=== PATIENT | female | born 1970 | race Caucasian/White ===

== ENCOUNTER 2019-09-17 14:47 | Emergency (ER) | payer OTHER ==
[~2019-09-17] VITALS: Ht 162.6 cm; Wt 85.3 kg
[2019-09-17 14:48] VITALS: BP 143/98
[2019-09-17] MEDS ORDERED: LORazepam 2 MG/ML, 1ML ONE (15:26)
[2019-09-17] MEDS ORDERED: MORPHINE SULFATE 4 MG/ML, 1ML IVPush PRN (15:30)
--- NOTE | 2019-09-17 15:34 | NUR ---
PT TO ROOM 31 PER PEDIS. PT VERY UPSET, CRYING UPON ARRIVAL. PT WAS SEEN BY A DOCTOR EARLIER TODAY WHO SAID SHE MOST LIKELY HAS GALL STONES, AND WANTED HER TO COME TO THE ED. PT BEGAN TO GET VERY WORRIED WHEN THEY SENT HER TO THE RESP SIDE. PT HAS NO COUGH, FEVER, SORE THROAT, OR COVID SYMPTOMS. PT IS AFRAID SHE IS NOW GOING TO GET COVID, AND SHE DOES NOT WANT TO . RN ABLE TO CALM PATIENT BRIEFLY, BUT ANXIETY STARTS UP AGAIN WHEN DOCTOR COMES IN TO ROOM. MUCH COAXING AND EXPLAINING TO HELP PATIENT UNDERSTAND WE ARE GOING TO TAKE CARE OF HER. ORIGINAL ORDER WAS FOR MORPHINE, BUT CHANGES ORDERS TO ATIVAN 1MG. RN ADMINISTERS ATIVAN WITHOUT DIFF. ATTEMPTS TO FIND UNSUCCESSFUL, AND CALLING HIS NUMBER LED TO JUST AN ANSWERING MACHINE. PT UPSET SHE CAN NOT FIND HIM OR CALL HER SON BECAUSE SHE DOES NOT KNOW HIS NUMBER AND SHE CAN'T FIND HER CELL PHONE. US AT BEDSIDE TO PERFORM TESTING.
[2019-09-17 15:38] LABS: BASOPHILS # (AUTO) 0.17 x10^3/uL (0-0.1); BASOPHILS % (AUTO) 1 % (0-1); EOSINOPHILS % (AUTO) 2 % (1-7); LYMPHOCYTES # (AUTO) 3.33 x10^3/uL (1-3.4); LYMPHOCYTES % (AUTO) 27 % (22-44); MD NO; MEAN CORPUSCULAR HEMOGLOBIN 32.3 pg (27.0-34.8); MEAN CORPUSCULAR HGB CONC 33.7 g/dL (32.4-35.8); MEAN CORPUSCULAR VOLUME 95.6 fL (80-100); MEAN PLATELET VOLUME 9.1 fL (7.4-10.4); MONOCYTES # (AUTO) 0.57 x10^3/uL (0.2-0.8); MONOCYTES % (AUTO) 5 % (2-9); NEUTROPHILS # (AUTO) 7.89 x10^3/uL (1.8-6.8); NEUTROPHILS % (AUTO) 65 % (42-75); PLATELET COUNT 267 x10^3/uL (130-400); RED BLOOD COUNT 4.29 x10^6/uL (3.82-5.3); RED CELL DISTRIBUTION WIDTH 13.2 % (9.6-15.2)
[2019-09-17 15:46] LABS: ALANINE AMINOTRANSFERASE 24 U/L (12-78); ALBUMIN 3.6 g/dL (3.4-5.0); ANION GAP 9 mmol/L (5-15); CALCIUM 8.3 mg/dL (8.5-10.1); CHLORIDE 110 mmol/L (98-107); CREATININE 0.98 mg/dL (0.55-1.02)
[2019-09-17 15:51] LABS: ALKALINE PHOSPHATASE 85 U/L (45-117); BILIRUBIN,TOTAL 0.2 mg/dL (0.2-1.0); TOTAL PROTEIN 7.3 g/dL (6.4-8.2); TROPONIN I < 0.015 ng/mL (0.000-0.045)
[2019-09-17] MEDS ORDERED: LORazepam 2 MG/ML, 1ML IVPush ONE ×2 (16:00→17:00)
[2019-09-17] MEDS ORDERED: ONDANSETRON 2MG/ML, 2ML IVPush ONE (16:00)
[2019-09-17] MEDS ORDERED: SODIUM CHLORIDE 0.9% 1,000ML IVBOLUS ONE (16:00)
--- NOTE | 2019-09-17 16:07 | NUR ---
BREAK RN: PT OOB AND AMBULATED TO BATHROOM, CLEAN CATCH URINE COLLECTED AND PT RTD TO ROOM W/O INCIDENT. PT IS TEARFUL, VERBALIZING CONCERNS "WHAT IS WRONG WITH ME" PT INFORMED THAT US IS COMPLETED AND WILL BE REVIEWED BY THE RADIOLOGIST. URINE HAS BEEN SENT TO LAB, ALL RESULTS SHOULD BE POSTED WITHIN THE NEXT HOUR. CALL LIGHT W/I REACH, BLANKET AND PILLOW PROVIDED.
[2019-09-17 16:20] LABS: MICROSCOPIC NOT IND
[2019-09-17 16:24] LABS: CULTURE INDICATED? NO
[2019-09-17] MEDS ORDERED: SODIUM CHLORIDE FLUSH 10ML SYR IVF ONE (16:30)
--- NOTE | 2019-09-17 16:30 | NUR ---
RN RETURNED FROM LUNCH, PT IS FULLY DRESSED IN BED AND IV HAS BEEN REMOVED. ORDERS FOR CT OF ABDOMEN.
--- NOTE | 2019-09-17 16:43 | NUR ---
Alvaro RN: Pt was found OOB, fully dressed, stating that she wants to "come back for the cat scan" Pt gotten back into bed, into gown, pt agreeing to stay for CT. Pt very upset that her "just dumped me here", attempted to contact pt's at , no answer, message left requesting that he return to ED.
--- NOTE | 2019-09-17 16:58 | NUR ---
PT RETURNED, AND RN OUT TO SPEAK WITH HIM AND BRING HIM BACK TO SEE . BACK IN PATIENT GOWN AND HEADED TO CT. THEN INFORMS RN AND CUSTOMS COMPLIANCE SPECIALIST THAT PATIENT DRINKS HEAVILY ALL THE TIME, BUT THE ABDOMINAL PAIN IS REAL. MEDICATION CHANGE PATIENT IV IS OUT, DC THE ATIVAN, AND WILL GIVE THE TORADOL IM.
[2019-09-17] MEDS ORDERED: KETOROLAC 30 MG/1 ML IVPush ONE (17:00)
--- NOTE | 2019-09-17 17:01 | NUR ---
UNABLE TO GET A FULL BLOOD PRESSURE PATIENT CAN NOT SIT STILL LONG ENOUGH FOR CUFF TO GET A READING.
--- NOTE | 2019-09-17 17:41 | NUR ---
IN TO SPEAK TO PATIENT REGARDING HER TEST RESULTS.
--- NOTE | 2019-09-17 17:46 | NUR ---
PATIENT AGAIN HAS COMPLETELY DRESSED HERSELF TO LEAVE. AFTER MD SPOKE WITH HER, PATIENT WALKS OUT OF ROOM CRYING ASKING TO SEE HER . PT REDIRECTED BACK INTO ROOM. AT BEDSIDE. WILL CONTINUE TO MONITOR.
--- NOTE | 2019-09-17 18:16 | NUR ---
DISCHARGE INSTRUSTIONS GIVEN TO PATIENT AND AFTER MD IN EXPLAINING WHERE SHE NEEDS TO GO TO FOLLOW UP. ONE PRESCRIPTION GIVEN FOR PAIN MEDS AND MEDICATION EXPLAINED TO PATIENT AND . PT REFUSED TO HAVE VITALS TAKEN, AND AMBULATED OUT OF ED PER PEDIS WITH HER .
== END 2019-09-17 18:19 | disposition home or self-care (01) ==
LOC: ED 15:54
DX: S39.012A Strain of muscle, fascia and tendon of lower back, initial encounter (principal); N13.30 Unspecified hydronephrosis; R06.4 Hyperventilation; F41.9 Anxiety disorder, unspecified; X58.XXXA Exposure to other specified factors, initial encounter; Y93.89 Activity, other specified; Y92.89 Other specified places as the place of occurrence of the external cause; Y99.8 Other external cause status
CPT/HCPCS: 36415; 71045; 74176; 76700; 80053; 81003; 83690; 84484; 85025; 96374; 99285; J2060; J7030

== ENCOUNTER 2019-09-17 19:09 | Emergency (ER) | payer OTHER ==
[~2019-09-17] VITALS: Ht 162.6 cm; Wt 83.5 kg
[2019-09-17 19:20] VITALS: BP 141/83
[2019-09-17] MEDS ORDERED: HYDROcodone/APAP 5/325 TABLET ONE (20:03)
[2019-09-17] MEDS ORDERED: HYDROcodone/APAP 5/325 TABLET PO ONE (20:30)
== END 2019-09-17 20:26 | disposition home or self-care (01) ==
LOC: ED 20:22
DX: S92.354A Nondisplaced fracture of fifth metatarsal bone, right foot, initial encounter for closed fracture (principal); X50.1XXA Overexertion from prolonged static or awkward postures, initial encounter; Y93.89 Activity, other specified; Y92.481 Parking lot as the place of occurrence of the external cause; Y99.8 Other external cause status
CPT/HCPCS: 29515; 99283

== ENCOUNTER 2019-09-28 15:53 | Inpatient (IN) | payer OTHER ==
[~2019-09-28] VITALS: Ht 162.6 cm; Wt 89.9 kg
--- NOTE | 2019-09-28 15:57 | NUR ---
PT CALLED TO TRIAGE X1, PT IN RR.
[2019-09-28] MEDS ORDERED: MORPHINE SULFATE 4 MG/ML, 1ML ONE (16:26)
[2019-09-28] MEDS ORDERED: ONDANSETRON 2MG/ML, 2ML ONE (16:26)
[2019-09-28] MEDS ORDERED: ACETAMINOPHEN 500 MG TABLET ONE (16:27)
[2019-09-28] MEDS ORDERED: SODIUM CHLORIDE 0.9% 1,000ML IVBOLUS ONE (16:30)
[2019-09-28] MEDS ORDERED: MORPHINE SULFATE 4 MG/ML, 1ML IVPush PRN (16:30)
[2019-09-28] MEDS ORDERED: ACETAMINOPHEN 500 MG TABLET PO ONE (16:30)
[2019-09-28] MEDS ORDERED: SODIUM CHLORIDE FLUSH 10ML SYR IVF ONE (16:30)
[2019-09-28] MEDS ORDERED: ONDANSETRON 2MG/ML, 2ML IVPush ONE (16:30)
--- NOTE | 2019-09-28 16:50 | NUR ---
PT RESTING IN [facility], MEDICATED PER JUL, NAD, WHEELED TO RESTROOM VIA WHEELCHAIR, CALL LIGHT ON LAP, NAD, RESP WNL. WCTM.
[2019-09-28 16:55] LABS: BASOPHILS # (AUTO) 0.01 x10^3/uL (0-0.1); BASOPHILS % (AUTO) 0 % (0-1); EOSINOPHILS # (AUTO) 0.03 x10^3/uL (0-0.4); EOSINOPHILS % (AUTO) 0 % (1-7); LYMPHOCYTES # (AUTO) 0.67 x10^3/uL (1-3.4); LYMPHOCYTES % (AUTO) 5 % (22-44); MD NO; MEAN CORPUSCULAR HEMOGLOBIN 31.9 pg (27.0-34.8); MEAN CORPUSCULAR HGB CONC 33.7 g/dL (32.4-35.8); MEAN CORPUSCULAR VOLUME 94.8 fL (80-100); MONOCYTES % (AUTO) 1 % (2-9); NEUTROPHILS % (AUTO) 94 % (42-75); PLATELET COUNT 172 x10^3/uL (130-400); RED BLOOD COUNT 4.46 x10^6/uL (3.82-5.3); RED CELL DISTRIBUTION WIDTH 13.2 % (9.6-15.2)
[2019-09-28 17:09] LABS: ALANINE AMINOTRANSFERASE 20 U/L (12-78); ALBUMIN 3.8 g/dL (3.4-5.0); ANION GAP 5 mmol/L (5-15); CALCIUM 9.1 mg/dL (8.5-10.1); CHLORIDE 102 mmol/L (98-107); CREATININE 1.29 mg/dL (0.55-1.02)
[2019-09-28 17:11] LABS: ALKALINE PHOSPHATASE 78 U/L (45-117); BILIRUBIN,TOTAL 0.7 mg/dL (0.2-1.0); TOTAL PROTEIN 7.9 g/dL (6.4-8.2)
[2019-09-28] MEDS ORDERED: CEFTRIAXONE PMX 1GM/50ML 50 ML ONE (17:19)
[2019-09-28 17:28] LABS: MICROSCOPIC AUTO
[2019-09-28] MEDS ORDERED: CEFTRIAXONE PMX 1GM/50ML 50 ML IV ONE (17:30)
--- NOTE | 2019-09-28 17:45 | NUR ---
PT TO CT VIA KATIA SULLIVAN, RESP WNL, P/W/D, WCTM.
[2019-09-28] MEDS ORDERED: OMNIPAQUE 350 MG/ML, 150 ML BOTTLE ONE (18:00)
[2019-09-28] MEDS ORDERED: OXYCODONE PO (18:08)
[2019-09-28] MEDS ORDERED: IBUPROFEN 600 MG TABLET ONE (18:18)
[2019-09-28] MEDS ORDERED: IBUPROFEN 600 MG TABLET PO ONE (18:30)
--- NOTE | 2019-09-28 18:34 | NUR ---
PT RESTING ON GURNEY IN GOWN, NAD, RESP WNL, P/W/D, CALL LIGHT ON LAP. VSS, WCTM. WAITING FOR TEST RESULTS. PT HELPED TO BEDSIDE COMMODE TO E. WAITING FOR ADMIT BED.
[2019-09-28] MEDS ORDERED: ATOR10TA9 PO (18:48)
[2019-09-28] MEDS ORDERED: DIPH25CA61 PO (18:48)
[2019-09-28] MEDS ORDERED: ALPRAZOLAM PEG (18:48)
[2019-09-28] MEDS ORDERED: NITR100C PO (18:48)
[2019-09-28] MEDS ORDERED: HYDR-3237 PO (18:48)
[2019-09-28] MEDS ORDERED: BISACODYL 10 MG SUPP PR PRN (19:00)
[2019-09-28] MEDS ORDERED: HYDROmorphone 2 MG/ML, 1ML IVPush PRN (19:00)
[2019-09-28] MEDS ORDERED: POLYETHYLENE GLYCOL 17 GM PACKET PO PRN (19:00)
[2019-09-28] MEDS ORDERED: hydrALAzine 20 MG/ML, 1ML IVPush PRN (19:00)
--- NOTE | 2019-09-28 19:06 | NUR ---
BEDSIDE REPORT TO ANGELLA ARMIJO. PT CARE TRANSFERRED AT THIS TIME.
--- NOTE | 2019-09-28 19:07 | NUR ---
first pt contact, assisted to bedside commode, await room assignment.
[2019-09-28] MEDS ORDERED: DIPHENHYDRAMINE 25 MG CAPSULE PO PRN (19:30)
[2019-09-28] MEDS ORDERED: HYDROcodone/APAP 5/325 TABLET PO PRN (19:30)
[2019-09-28] MEDS: HYDROCODONE MC SCH ×2 (19:30→23:38)
[2019-09-28] MEDS: ACETAMINOPHEN MC SCH ×2 (19:30→23:38)
[2019-09-28] MEDS: MEROPENEM 1 GM in SODIUM CHLORIDE 0.9% 100 ML IV SCH (21:05)
[2019-09-28] MEDS: SODIUM CHLORIDE 0.9% 1,000 ML IV SCH (21:16)
[2019-09-28] MEDS: HEPARIN 5,000 UNITS/ML, 1ML SQ SCH (21:17)
[2019-09-28] MEDS: ATORVASTATIN 10 MG TABLET PO SCH (21:17)
[2019-09-28] MEDS: ONDANSETRON 2MG/ML, 2ML IVPush PRN (23:20)
[2019-09-29 00:59] VITALS: BP 92/59
[2019-09-29] MEDS: HEPARIN 5,000 UNITS/ML, 1ML SQ SCH ×3 (04:00→18:16)
[2019-09-29] MEDS: MEROPENEM 1 GM in SODIUM CHLORIDE 0.9% 100 ML IV SCH ×3 (04:39→20:56)
[2019-09-29] MEDS: ONDANSETRON 2MG/ML, 2ML IVPush PRN (05:19)
[2019-09-29] MEDS: HYDROcodone/APAP 5/325 TABLET PO PRN ×3 (05:20→21:12)
[2019-09-29 05:50] LABS: ALBUMIN 2.9 g/dL (3.4-5.0); ANION GAP 5 mmol/L (5-15); CALCIUM 8.4 mg/dL (8.5-10.1); CHLORIDE 106 mmol/L (98-107)
[2019-09-29 05:54] LABS: ALANINE AMINOTRANSFERASE 17 U/L (12-78); ALKALINE PHOSPHATASE 77 U/L (45-117); BILIRUBIN,TOTAL 0.3 mg/dL (0.2-1.0); CHOL/HDL RATIO 2.8; CHOLESTEROL, TOTAL 152 mg/dL (140-239); CREATININE 1.18 mg/dL (0.55-1.02); HDL CHOL % 36 % (28-40); HDL CHOLESTEROL (DIRECT) 54 mg/dL (40-60); LDL CHOLESTEROL,CALCULATED 38 mg/dL (54-169); LDL/HDL RATIO 0.7 (0.5-3.0); TOTAL PROTEIN 6.4 g/dL (6.4-8.2); TRIGLYCERIDES 302 mg/dL (50-200); VLDL CHOLESTEROL 60 mg/dL (0-25)
[2019-09-29 06:02] LABS: MEAN CORPUSCULAR HGB CONC 33.4 g/dL (32.4-35.8); MEAN CORPUSCULAR VOLUME 95.8 fL (80-100); MEAN PLATELET VOLUME 9.3 fL (7.4-10.4); PLATELET COUNT 201 x10^3/uL (130-400); RED BLOOD COUNT 3.91 x10^6/uL (3.82-5.3); RED CELL DISTRIBUTION WIDTH 13.5 % (9.6-15.2)
[2019-09-29 06:31] LABS: BASOPHILS % (AUTO) 0 % (0-1); EOSINOPHILS # (AUTO) 0.02 x10^3/uL (0-0.4); EOSINOPHILS % (AUTO) 0 % (1-7); LYMPHOCYTES # (AUTO) 1.14 x10^3/uL (1-3.4); LYMPHOCYTES % (AUTO) 6 % (22-44); MD SCAN; MONOCYTES % (AUTO) 3 % (2-9); NEUTROPHILS # (AUTO) 16.59 x10^3/uL (1.8-6.8); NEUTROPHILS % (AUTO) 90 % (42-75)
[2019-09-29] MEDS: HYDROCODONE MC SCH ×3 (07:50→19:21)
[2019-09-29] MEDS: ACETAMINOPHEN MC SCH ×3 (07:50→19:21)
[2019-09-29 07:52] VITALS: BP 117/78
[2019-09-29] MEDS ORDERED: KETOROLAC 30 MG/1 ML IVPush PRN (08:30)
[2019-09-29] MEDS: SENNA/DOCUSATE TABLET PO SCH (08:50)
[2019-09-29] MEDS: SODIUM CHLORIDE 0.9% 1,000 ML IV SCH ×2 (08:51→18:17)
[2019-09-29 13:10] VITALS: BP 106/71
[2019-09-29] MEDS: ACETAMINOPHEN 325 MG TABLET PO PRN (18:16)
[2019-09-29 18:27] VITALS: BP 121/82
[2019-09-29] MEDS: ATORVASTATIN 10 MG TABLET PO SCH (20:56)
[2019-09-30 00:15] VITALS: BP 138/91
[2019-09-30] MEDS: ACETAMINOPHEN 325 MG TABLET PO PRN ×2 (04:47→21:04)
[2019-09-30] MEDS: HYDROcodone/APAP 5/325 TABLET PO PRN ×2 (04:47→19:40)
[2019-09-30] MEDS: MEROPENEM 1 GM in SODIUM CHLORIDE 0.9% 100 ML IV SCH ×3 (04:48→20:53)
[2019-09-30] MEDS: HEPARIN 5,000 UNITS/ML, 1ML SQ SCH ×3 (04:48→20:53)
[2019-09-30] MEDS: SODIUM CHLORIDE 0.9% 1,000 ML IV SCH ×2 (04:49→16:10)
[2019-09-30 06:21] LABS: BASOPHILS # (AUTO) 0.03 x10^3/uL (0-0.1); BASOPHILS % (AUTO) 0 % (0-1); EOSINOPHILS # (AUTO) 0.07 x10^3/uL (0-0.4); EOSINOPHILS % (AUTO) 1 % (1-7); LYMPHOCYTES # (AUTO) 0.92 x10^3/uL (1-3.4); LYMPHOCYTES % (AUTO) 10 % (22-44); MD SCAN; MEAN CORPUSCULAR HEMOGLOBIN 31.4 pg (27.0-34.8); MEAN CORPUSCULAR HGB CONC 32.7 g/dL (32.4-35.8); MEAN CORPUSCULAR VOLUME 95.8 fL (80-100); MEAN PLATELET VOLUME 9.5 fL (7.4-10.4); MONOCYTES # (AUTO) 0.68 x10^3/uL (0.2-0.8); MONOCYTES % (AUTO) 7 % (2-9); NEUTROPHILS # (AUTO) 7.79 x10^3/uL (1.8-6.8); NEUTROPHILS % (AUTO) 82 % (42-75); PLATELET COUNT 163 x10^3/uL (130-400); RED BLOOD COUNT 3.64 x10^6/uL (3.82-5.3); RED CELL DISTRIBUTION WIDTH 13.5 % (9.6-15.2)
[2019-09-30 06:28] LABS: ANION GAP 6 mmol/L (5-15); CALCIUM 8.7 mg/dL (8.5-10.1); CHLORIDE 110 mmol/L (98-107); CREATININE 1.06 mg/dL (0.55-1.02)
[2019-09-30 07:14] VITALS: BP 126/81
[2019-09-30] MEDS: HYDROCODONE MC SCH (07:15)
[2019-09-30] MEDS: ACETAMINOPHEN MC SCH (07:15)
[2019-09-30] MEDS: SENNA/DOCUSATE TABLET PO SCH (08:01)
[2019-09-30 16:15] VITALS: BP 145/90
[2019-09-30 20:50] VITALS: BP 138/88
[2019-09-30] MEDS: ATORVASTATIN 10 MG TABLET PO SCH (20:54)
[2019-10-01 00:25] VITALS: BP 130/86
[2019-10-01] MEDS: MEROPENEM 1 GM in SODIUM CHLORIDE 0.9% 100 ML IV SCH (04:59)
[2019-10-01] MEDS: HEPARIN 5,000 UNITS/ML, 1ML SQ SCH ×3 (04:59→22:19)
[2019-10-01] MEDS: SODIUM CHLORIDE 0.9% 1,000 ML IV SCH (04:59)
[2019-10-01] MEDS: HYDROcodone/APAP 5/325 TABLET PO PRN ×4 (05:05→22:19)
[2019-10-01 07:46] VITALS: BP 153/97
[2019-10-01] MEDS: SENNA/DOCUSATE TABLET PO SCH (09:00)
[2019-10-01] MEDS ORDERED: ERTAPENEM 1 GM IM ONE (12:30)
[2019-10-01] MEDS ORDERED: ERTAPENEM 1 GM in SODIUM CHLORIDE 0.9% 50 ML IV SCH (14:00)
[2019-10-01 14:50] VITALS: BP 134/83
[2019-10-01 21:00] VITALS: BP 144/88
[2019-10-01] MEDS: ATORVASTATIN 10 MG TABLET PO SCH (22:19)
[2019-10-02 03:00] VITALS: BP 118/76
[2019-10-02] MEDS: HYDROcodone/APAP 5/325 TABLET PO PRN ×2 (06:15→10:30)
[2019-10-02] MEDS: HEPARIN 5,000 UNITS/ML, 1ML SQ SCH (06:15)
[2019-10-02 07:22] VITALS: BP 131/89
[2019-10-02] MEDS: SENNA/DOCUSATE TABLET PO SCH (09:00)
[2019-10-02] MEDS ORDERED: CEFTRIAXONE PMX 2GM/50ML 50 ML IV SCH (10:00)
[2019-10-02] MEDS ORDERED: CEFT2FRO2 IV (12:18)
== END 2019-10-02 14:19 | disposition home or self-care (01) | DRG 872 ==
LOC: ED 17:11 → EDIP 18:56 → 3N 19:55
PROVIDERS: ADMIT Internal Medicine; ATTEND Internal Medicine
PROC: 0T9B70Z Drainage of Bladder with Drainage Device, Via Natural or Artificial Opening (ICD-10-PCS; 2019-09-28)
PROC: 02HV33Z Insertion of Infusion Device into Superior Vena Cava, Percutaneous Approach (ICD-10-PCS; principal; 2019-10-01)
PROC: B5181ZA Fluoroscopy of Superior Vena Cava using Low Osmolar Contrast, Guidance (ICD-10-PCS; 2019-10-01)
PROC: B548ZZA Ultrasonography of Superior Vena Cava, Guidance (ICD-10-PCS; 2019-10-01)
DX: A41.51 Sepsis due to Escherichia coli [E. coli] (principal); N13.6 Pyonephrosis; D63.8 Anemia in other chronic diseases classified elsewhere; E78.5 Hyperlipidemia, unspecified; F41.1 Generalized anxiety disorder; I10 Essential (primary) hypertension; K76.0 Fatty (change of) liver, not elsewhere classified; Z82.49 Family history of ischemic heart disease and other diseases of the circulatory system
CPT/HCPCS: 36415; 36573; 74178; 80048; 80053; 80061; 81001; 83605; 83690; 84145; 85025; 87040; 87077; 87086; 87186; 96365; 96375; G0378; J0696; J1335; J1644; J1885; J2185; J2405; Q9967; C1751; J2270; J7030

== ENCOUNTER 2019-12-07 18:38 | Emergency (ER) | payer OTHER ==
[~2019-12-07] VITALS: Ht 162.6 cm; Wt 86.2 kg
[~2019-12-07 18:38] MED LIST: ALPRAZOLAM PO; ATOR10TA9 PO; CEFT2FRO2 IV; DIPH25CA61 PO; HYDR-3237 PO; NITR100C PO; OXYCODONE PO
--- NOTE | 2019-12-07 19:27 | NUR ---
PT TO ROOM FROM LOBBY AT THIS TIME.
[2019-12-07] MEDS ORDERED: ONDANSETRON 2MG/ML, 2ML ONE (19:59)
[2019-12-07] MEDS ORDERED: MORPHINE SULFATE 4 MG/ML, 1ML ONE ×2 (19:59→21:05)
[2019-12-07] MEDS ORDERED: ONDANSETRON 2MG/ML, 2ML IVPush ONE (20:00)
[2019-12-07] MEDS ORDERED: SODIUM CHLORIDE FLUSH 10ML SYR IVF ONE (20:00)
--- NOTE | 2019-12-07 20:00 | NUR ---
LATE ENTRY: FIRST PT CONTACT PT STATES THIS ABDOMINAL PAIN HAS BEEN OCCURRING FOR MONTHS. PT STATES IT IS 10/10 PAIN AROUND HER BELLY BUTTON. PT GROANING IN DISCOMFORT, BREATHING IS HARSH AND FORCED IN BETWEEN GROANS. PT STATES ABDOMINAL PAIN FEELS LIKE CONTRACTIONS AND REPORTING SEVERE ANXIETY STATING "I AM SCARED I AM DYING". PT MEDICATED PER JUL FOR PAIN, PLACED ON 2L NC FOR O2 SAT POST MEDICATION. WCTM. LABS AND [facility] SENT PT PLACED ON SPO2/BP MONITORING.
[2019-12-07] MEDS: MORPHINE SULFATE 4 MG/ML, 1ML IVPush PRN ×2 (20:05→21:07)
[2019-12-07] MEDS ORDERED: ANTIBIOTIC PO (20:15)
--- NOTE | 2019-12-07 20:25 | NUR ---
Note undone in EDM - 12/07/19 at 2026 by PERICO LATE ENTRY: FIRST PT CONTACT PT STATES THIS ABDOMINAL PAIN HAS BEEN OCCURRING FOR MONTHS. PT STATES IT IS 10/10 PAIN AROUND HER BELLY BUTTON. PT GROANING IN DISCOMFORT, BREATHING IS HARSH AND FORCED IN BETWEEN GROANS. PT STATES ABDOMINAL PAIN FEELS LIKE CONTRACTIONS AND REPORTING SEVERE ANXIETY STATING "I AM SCARED I AM DYING". PT MEDICATED PER JUL FOR PAIN, PLACED ON 2L NC FOR O2 SAT POST MEDICATION. WCTM. LABS AND [facility] SENT PT PLACED ON SPO2/BP MONITORING.
--- NOTE | 2019-12-07 20:27 | NUR ---
PT STATES STILL PASSING GAS AND HAVING BOWEL MOVEMENTS. PT SKIN P/W/D, CALL LIGHT ON LAP GIVEN WARM BLANKET FOR COMFORT. WCTM.
[2019-12-07 20:28] LABS: BASOPHILS # (AUTO) 0.02 x10^3/uL (0-0.1); BASOPHILS % (AUTO) 0 % (0-1); EOSINOPHILS # (AUTO) 0.08 x10^3/uL (0-0.4); EOSINOPHILS % (AUTO) 1 % (1-7); LYMPHOCYTES # (AUTO) 3.47 x10^3/uL (1-3.4); LYMPHOCYTES % (AUTO) 39 % (22-44); MD NO; MEAN CORPUSCULAR HEMOGLOBIN 31.3 pg (27.0-34.8); MEAN CORPUSCULAR HGB CONC 33.8 g/dL (32.4-35.8); MEAN CORPUSCULAR VOLUME 92.5 fL (80-100); MONOCYTES # (AUTO) 0.58 x10^3/uL (0.2-0.8); MONOCYTES % (AUTO) 7 % (2-9); NEUTROPHILS # (AUTO) 4.71 x10^3/uL (1.8-6.8); NEUTROPHILS % (AUTO) 53 % (42-75); PLATELET COUNT 284 x10^3/uL (130-400); RED BLOOD COUNT 4.51 x10^6/uL (3.82-5.3); RED CELL DISTRIBUTION WIDTH 13.9 % (9.6-15.2)
[2019-12-07 20:35] LABS: MICROSCOPIC AUTO
[2019-12-07 20:39] LABS: ALANINE AMINOTRANSFERASE 33 U/L (12-78); ALBUMIN 3.8 g/dL (3.4-5.0); ANION GAP 9 mmol/L (5-15); CALCIUM 8.6 mg/dL (8.5-10.1); CHLORIDE 109 mmol/L (98-107); CREATININE 1.09 mg/dL (0.55-1.02)
[2019-12-07 20:41] LABS: ALKALINE PHOSPHATASE 99 U/L (45-117); BILIRUBIN,TOTAL 0.3 mg/dL (0.2-1.0); TOTAL PROTEIN 7.5 g/dL (6.4-8.2)
[2019-12-07] MEDS ORDERED: OMNIPAQUE 350 MG/ML, 100ML BOTTLE ONE (21:40)
[2019-12-07] MEDS ORDERED: KETOROLAC 30 MG/1 ML IVPush ONE (22:00)
[2019-12-07 22:01] VITALS: BP 105/70
--- NOTE | 2019-12-07 22:02 | NUR ---
PT TOSSING AND TURNING IN GURNEY, STATING PAIN IS NOT DECREASED. PT REMEDICATED PER MAR. VSS. WCTM. WAITING FOR ADDITIONAL TEST RESULTS.
[2019-12-07] MEDS ORDERED: KETOROLAC 30 MG/1 ML ONE (22:03)
[2019-12-07 22:19] LABS: AMPHETAMINE SCREEN, URINE Negative (Negative); BARBITURATE SCREEN, URINE Negative (Negative); BENZODIAZEPINE SCREEN, URINE Negative (Negative); CANNABINOID SCREEN, URINE Negative (Negative); COCAINE SCREEN, URINE Negative (Negative); METHADONE SCREEN, URINE Negative (Negative); OPIATE SCREEN, URINE Negative (Negative)
--- NOTE | 2019-12-07 22:19 | NUR ---
TASK RN: PT PROVIDED DC INSTRUCTIONS AND BECAME ANGRY WITH STAFF CLAIMING THAT SHE IS NOT BEING TREATED FOR PAIN. PT REMINDED THAT SHE HAS BEEN MEDICATED FOR PAIN DURING HER STAY. PT ENCOURAGED TO FOLLOW UP WITH GI
--- NOTE | 2019-12-08 01:03 | NUR ---
CHART ACCESSED FOR RECORDS REQUEST FROM [facility].
== END 2019-12-07 22:21 | disposition home or self-care (01) ==
LOC: ED 21:00
DX: F10.120 Alcohol abuse with intoxication, uncomplicated (principal); R11.2 Nausea with vomiting, unspecified; R10.11 Right upper quadrant pain; Z72.9 Problem related to lifestyle, unspecified; Y90.0 Blood alcohol level of less than 20 mg/100 ml
CPT/HCPCS: 36415; 74177; 76700; 80053; 80307; 81001; 83690; 85025; 87086; 96374; 96375; 96376; 99285; J1885; J2270; J2405; Q9967